=== PATIENT | female | born 1950 | race Caucasian/White ===

== ENCOUNTER 2017-10-12 07:13 | Inpatient (IN) | payer MEDICARE ==
[~2017-10-12] VITALS: Ht 162.6 cm; Wt 90.7 kg
[2017-10-12] MEDS ORDERED: NITROGLYCERIN 2% OINT 1 GM PKT TOP STA (07:46)
[2017-10-12] MEDS ORDERED: ASPIRIN 81 MG CHEW TAB PO STA (07:46)
[2017-10-12] MEDS ORDERED: ASPIRIN 81 MG CHEW TAB PO ONE (08:00)
--- NOTE | 2017-10-12 08:30 | Diagnostic Imaging Report ---
PROCEDURE: A single AP view of the chest. COMPARISON: None. INDICATIONS: CHEST PAIN FINDINGS: Lines/tubes: None. Lungs: The lungs are well inflated and clear. There is no evidence of pneumonia or pulmonary edema. Pleura: There is no pleural effusion or pneumothorax. Heart and mediastinum: The heart and the mediastinum are unremarkable. Bones: No acute bony abnormality. Median sternotomy wires. IMPRESSION: No acute radiographic abnormality. Dictated by: Shadi Bowie M.D. on 10/12/2017 at 8:31 Electronically approved by: Shadi Bowie M.D. on 10/12/2017 at 8:31
[2017-10-12 08:45] LABS: BILIRUBIN,URINE NEGATIVE (NEGATIVE); KETONES,URINE 2+ (NEGATIVE); LEUKOCYTE ESTERASE ,URINE 2+ (NEGATIVE); NITRITE,URINE NEGATIVE (NEGATIVE); URINE UROBILINOGEN 0.2 mg/dL (0.2 - 1)
[2017-10-12 08:46] LABS: CLARITY,URINE SL CLOUDY (CLEAR); COLOR,URINE YELLOW (YELLOW); PROTEIN,URINE DIPSTICK 1+ (NEGATIVE)
[2017-10-12 09:06] LABS: RBC,URINE >50 /HPF (0-5)
[2017-10-12 09:07] LABS: BACTERIA,URINE RARE /HPF; EPITHELIAL CELLS,URINE MODERATE /LPF; TRANSITIONAL EPI CELLS,URINE FEW
[2017-10-12] MEDS ORDERED: KETOROLAC TROMETHAMINE 30 MG/ML VIAL IV STA (09:29)
[2017-10-12] MEDS ORDERED: DIAZEPAM 2 MG TAB PO ONE (09:30)
--- NOTE | 2017-10-12 10:10 | Diagnostic Imaging Report ---
PROCEDURE: CT ABDOMEN AND PELVIS WITHOUT CONTRAST TECHNIQUE: The abdomen and pelvis were scanned utilizing a multidetector helical scanner from the diaphragm to the lesser trochanter. No IV contrast was administered as per physician request. Coronal and sagittal multiplanar reformations were obtained. COMPARISON: None. INDICATIONS: RENAL STONE FINDINGS: ABSENCE OF INTRAVENOUS CONTRAST DECREASES SENSITIVITY FOR DETECTION OF FOCAL LESIONS AND VASCULAR PATHOLOGY. LOWER THORAX: Normal. HEPATOBILIARY: No focal hepatic lesions. No biliary ductal dilatation. SPLEEN: No splenomegaly. PANCREAS: No focal masses or ductal dilatation. ADRENALS: No adrenal nodules. KIDNEYS/URETERS: 6.1 mm calcification is present in the proximal left ureter, series 3 image 68. There is resulting minimal left hydroureter and no left hydronephrosis. Punctate calculi are present in the inferior pole and interpolar region of the left kidney. No right hydronephrosis, stones, or solid mass lesions. PELVIC ORGANS/BLADDER: Normal uterus and ovaries. Normal urinary bladder. PERITONEUM / RETROPERITONEUM: No free air or fluid. LYMPH NODES: No lymphadenopathy. VESSELS: Aortoiliac atherosclerotic calcifications. GI TRACT: No distention or wall thickening. Normal appendix. Moderate amount of retained feces limits intraluminal evaluation of the colon. BONES AND SOFT TISSUES: Degenerative changes of the lumbar spine. IMPRESSION: Calculus in the proximal left ureter with resulting minimal left hydroureter and no hydronephrosis. Nonobstructing left nephrolithiasis. Dictated by: Shadi Bowie M.D. on 10/12/2017 at 10:10 Electronically approved by: Shadi Bowie M.D. on 10/12/2017 at 10:10
[2017-10-12] MEDS ORDERED: DEXTROSE 50% SYRINGE 50 ML IV PRN (11:00)
--- OUTSIDE RECORDS SUMMARY | 2017-10-12 11:26 | XMS REPORT ---
Author Author [facility] Address Unknown Phone Unavailable Care Team Providers Care Dental Technologist Name Role Phone TABATHA JOHN Unavailable Unavailable Problems This patient has no known problems. Allergies, Adverse Reactions, Alerts This patient has no known allergies or adverse reactions. Medications This patient has no known medications. Results Test Description Test Time Test Comments Text Results Atomic Results Result Comments CT ABDOMEN/PELVIS WO [place] [address] Patient Name: CHARO MATHIS MR #: [id number] : 1950 Age/Sex: 66/F Req #: [id number] Adm Physician: Ordered by: TABATHA JOHN MD Report #: [id number] Location: ER Room/Bed: Procedure: [id number] CT/CT ABDOMEN/PELVIS WO Exam Date: 10/12/17 Exam Time: 929 REPORT STATUS: Signed PROCEDURE: CT ABDOMEN AND PELVIS WITHOUT CONTRAST TECHNIQUE: The abdomen and pelvis were scanned utilizing a multidetector helical scanner from the diaphragm to the lesser trochanter. No IV contrast was administered as per physician request. Coronal and sagittal multiplanar reformations were obtained. COMPARISON: None. INDICATIONS: RENAL STONE FINDINGS: ABSENCE OF INTRAVENOUS CONTRAST DECREASES SENSITIVITY FOR DETECTION OF FOCAL LESIONS AND VASCULAR PATHOLOGY. LOWER THORAX: Normal. HEPATOBILIARY: No focal hepatic lesions. No biliary ductal dilatation. SPLEEN: No splenomegaly. PANCREAS: No focal masses or ductal dilatation. ADRENALS: No adrenal nodules. KIDNEYS/URETERS: 6.1 mm calcification is present in the proximal left ureter, series 3 image 68. There is resulting minimal left hydroureter and no left hydronephrosis. Punctate calculi are present in the inferior pole and interpolar region of the left kidney. No right hydronephrosis, stones, or solid mass lesions. PELVIC ORGANS/BLADDER: Normal uterus and ovaries. Normal urinary bladder. PERITONEUM / RETROPERITONEUM: No free air or fluid. LYMPH NODES: No lymphadenopathy. VESSELS: Aortoiliac atherosclerotic calcifications. GI TRACT: No distention or wall thickening. Normal appendix. Moderate amount of retained feces limits intraluminal evaluation of the colon. BONES AND SOFT TISSUES : Degenerative changes of the lumbar spine. IMPRESSION: Calculus in the proximal left ureter with resulting minimal left hydroureter and no hydronephrosis. Nonobstructing left nephrolithiasis. Dictated by: Tanvir Ibrahim M.D. on 10/12/2017 at 10:10 Electronically approved by: Tanvir Ibrahim M.D. on 10/12/2017 at 10:10 Dictated By: TANVIR IBRAHIM MD 1011 Transcribed By: JAZMÍN on 10/12/17 1011 COPY TO: TABATHA JOHN MD CHEST SINGLE (NOT PORTABLE) [place] [address] Patient Name: CHARO MATHIS MR #: [id number] : 1950 Age/Sex: 66/F Req #: [id number] Adm Physician: Ordered by: TABATHA JOHN MD Report #: [id number] Location: ER Room/Bed: Procedure: [id number] DX/CHEST SINGLE (NOT PORTABLE) Exam Date: 10/12/17 Exam Time: 0805 REPORT STATUS: Signed PROCEDURE: A single AP view of the chest. COMPARISON: None. INDICATIONS: CHEST PAIN FINDINGS: Lines/tubes: None. Lungs: The lungs are well inflated and clear. There is no evidence of pneumonia or pulmonary edema. Pleura: There is no pleural effusion or pneumothorax. Heart and mediastinum: The heart and the mediastinum are unremarkable. Bones: No acute bony abnormality. Median sternotomy wires. IMPRESSION: No acute radiographic abnormality. Dictated by: Tanvir Ibrahim M.D. on 2017 at 8:31 Electronically approved by: Tanvir Ibrahim M.D. on 10/12/2017 at 8:31 Dictated By: TANVIR IBRAHIM MD 0 Transcribed By: JAZMÍN on 10/12/17830 COPY TO: TABATHA JOHN MD
[2017-10-12 11:30] LABS: INR 1.04; PROTHROMBIN TIME 12.8 seconds (11.9-14.5)
[2017-10-12 11:31] LABS: PARTIAL THROMBOPLASTIN TIME 38.7 seconds (23.8-35.5)
[2017-10-12] MEDS: SODIUM CHLORIDE 0.9% 1000ML 1,000 ML IV SCH ×3 (11:42→20:45)
[2017-10-12] MEDS: CEFTRIAXONE SOD 1 GM VIAL IV SCH (13:34)
[2017-10-12] MEDS: INSULIN REGULAR, HUMAN 100 UNIT/1 ML 3ML VIAL SQ SCH ×3 (13:35→20:01)
[2017-10-12 13:52] VITALS: BP 146/65
[2017-10-12] MEDS ORDERED: GLIMEPIRIDE2 MG PO (13:53)
[2017-10-12] MEDS ORDERED: ASPIRIN325 MG PO (13:53)
[2017-10-12] MEDS ORDERED: RAMIPRIL5 MG PO (13:53)
[2017-10-12] MEDS ORDERED: METOPROLOL SUCC50 MG PO (13:53)
[2017-10-12 14:46] VITALS: BP 146/65
[2017-10-12] MEDS ORDERED: METOPROLOL TART50 MG PO (14:55)
[2017-10-12 15:27] VITALS: BP 157/67
[2017-10-12] MEDS ORDERED: GLIMEPIRIDE 2 MG TAB PO SCH (17:00)
[2017-10-12] MEDS: METOPROLOL TARTRATE 50 MG TAB PO SCH (17:11)
[2017-10-12] MEDS: HYDROMORPHONE 1MG/1ML INJ IV PRN (18:55)
[2017-10-12] MEDS: ONDANSETRON HCL INJ 2 MG/ML VIAL IV PRN (18:56)
[2017-10-12 20:00] VITALS: BP 119/59
--- NOTE | 2017-10-12 20:58 | Diagnostic Imaging Report ---
EXAM: ABDOMEN-1VIEW (KUB) DATE: 10/12/2017 7:55 PM INDICATION: Pain COMPARISON: None FINDINGS: Body habitus significantly limits evaluation. Sternotomy wires partially visualized. There is moderate stool with no distinct small bowel obstructive change. There is a 7 mm calcification to the left of the L3 vertebral body. IMPRESSION: Exam limited by body habitus. 7 mm calcification to the left of the L3 vertebral body. Ureteral calculus possible. Signed by: Dr. Killian Marshall MD on 10/12/2017 8:55 PM
[2017-10-13] VITALS (8 sets, daily range): BP systolic 128–156; BP diastolic 60–80
--- NOTE | 2017-10-13 06:26 | Diagnostic Imaging Report ---
EXAM: ABDOMEN-1VIEW (KUB), supine and erect INDICATION: Kidney stone left side COMPARISON: CT of the abdomen and pelvis October 12, 2017 FINDINGS: LINES/TUBES: None BOWEL PATTERN: No evidence for obstruction. SOFT TISSUES: Stable position of the left ureteral stone at the L3 level. LUNG BASES: No consolidations. BONES: No acute findings. IMPRESSION: Stable position of the left ureteral stone at the L3 level. Signed by: Dr. Maggie Newton M.D. on 10/13/2017 6:16 AM
[2017-10-13 06:33] LABS: BASOPHILS % 0.3 % (0.0-1.0); EOSINOPHILS # (AUTO) 0.1 (0.0-0.4); EOSINOPHILS % 1.1 % (0.0-6.0); HEMATOCRIT 33.1 % (34.2-44.1); HEMOGLOBIN 10.9 g/dL (12.0-16.0); LYMPHOCYTES # (AUTO) 2.3 (1.0-3.2); LYMPHOCYTES % 22.3 % (18.0-39.1); MEAN CORPUSCULAR HEMOGLOBIN 29.4 pg (28-32); MEAN CORPUSCULAR HGB CONC 32.9 g/dL (31-35); MEAN CORPUSCULAR VOLUME 89.2 fL (81-99); MONOCYTES # (AUTO) 1.1 (0.2-0.8); MONOCYTES % 10.4 % (4.4-11.3); NEUTROPHILS # (AUTO) 6.9 (2.1-6.9); NEUTROPHILS % 65.5 % (38.7-80.0); PLATELET COUNT 234 x10e3/uL (140-360); RED BLOOD COUNT 3.71 x10e6/uL (3.6-5.1)
[2017-10-13] MEDS ORDERED: IOPAMIDOL 610MG/1ML 300 MG/ML VIAL IV ONE (06:42)
[2017-10-13] MEDS ORDERED: BELLADONNA/OPIUM 60 MG SUPP PR ONE (06:42)
[2017-10-13 06:52] LABS: ANION GAP 11.3 mmol/L (8-16); CALCIUM 8.6 mg/dL (8.4-10.2); CREATININE, SERUM 1.48 mg/dL (0.57-1.11); POTASSIUM 4.3 mmol/L (3.5-5.1)
--- NOTE | 2017-10-13 07:28 | Consultation ---
DATE OF CONSULTATION: October 13, 2017 UROLOGY CONSULTATION REASON FOR CONSULTATION: Renal colic. HISTORY OF PRESENT ILLNESS: Annie Moran is a 66-year-old woman with no previous urolithiasis. The patient had left-sided flank pain and reported to the emergency room. She denies hematuria, dysuria, urinary tract infection, urolithiasis. Denies any urological surgery. The patient reports not having problems with urinary tract infection or previous urolithiasis. She denies stress-type urinary incontinence. Reports a rare urge-type urinary incontinence when she does not reach the restroom in time. She has never seen a urologist PAST MEDICAL AND SURGICAL HISTORY 1. Coronary artery disease, status post coronary artery bypass grafting times 4 performed in [place], [place]. 2. 1, para 1 by spontaneous vaginal delivery. 3. Status post appendectomy at 6 years old. 4. Hypertension. 5. Hypercholesterolemia. 6. Diabetes mellitus. CURRENT MEDICATIONS: Reviewed per the MAR. ALLERGIES: PENICILLIN. Despite the penicillin, she did not seem to have any reaction to the Rocephin she has received. SOCIAL HISTORY: The patient denies smoking, ethanol drug use. She retired after working 30 years for [employer]. She is . She and her are . FAMILY HISTORY: Noncontributory to active urological problems. REVIEW OF SYSTEMS: As discussed above history of present illness and past medical history. Otherwise, negative for all other systems. PHYSICAL EXAMINATION GENERAL: Healthy-appearing 66-year-old woman lying in bed, in no apparent distress. VITALS: She is currently afebrile. Vital signs are currently stable. ABDOMEN: Soft, nondistended. It is obese. It is slightly tender in the left flank with mild left-sided costovertebral angle tenderness. Kidneys not palpable. No hepatosplenomegaly. No obvious evidence of hernias. For the remaining physical examination systems, please refer to the admission history and physical in the chart. LABORATORY STUDIES: Chemistries from this morning are pending. The patient's white blood cell count is 10,500, hemoglobin 10.9, platelets are 234,000. Patient's PT and INR are normal. Urinalysis significant for greater than 50 RBCs, 6-10 WBCs, moderate epithelial cells. I asked the emergency room to perform a catheterized urine specimen for culture and sensitivity. This was, apparently, not done prior to patient obtaining antibiotics. Due to this, I have remained this requested due to fact this is a not clean-cut urinary specimen with moderate epithelial cells. KUB revealed stable position, non-movement of the stone over 2 days near the L3 position. The stone measured at 6 mm calcification, punctate calculi are also present in inferior pole, inner pole region of the left kidney. There is no right-sided hydronephrosis, stones or solid masses. There is left-sided hydroureteronephrosis. ASSESSMENT 1. Left renal colic. 2. Mild urge-type urinary incontinence. 3. Obesity. 4. Anemia. 5. Microscopic hematuria. 6. Punctate left nephrolithiasis. 7. Obstructing 6-mm left urolithiasis. 8. Left hydroureteronephrosis due to stone. PLAN 1. Due to the fact the patient's probability of passing the stone is low and the fact that she has not had any movement of the stone during this hospitalization with hydration, I posted the patient for a left ureteral ESWL with cystoscopy and stent placement. The patient understands the risks of bleeding, infection, injury to adjacent structures, need for additional procedures, and the fact she will have a temporary indwelling ureteral stent that requires followup and removal. She understood these risks and elected to proceed. 2. Ongoing urological followup will, of course, be encouraged in order to not just remove the stent and render the patient stent free and stone free, but also to proceed with a stone prevention protocol. Thank you very much for involving us in the care of your patient. Will be happy to follow her along with you, as well as an outpatient. Job#: [id number] CQ cc:ALETHEA QUINN MD
[2017-10-13] MEDS: INSULIN REGULAR, HUMAN 100 UNIT/1 ML 3ML VIAL SQ SCH ×4 (07:30→21:23)
[2017-10-13] MEDS: GLIMEPIRIDE 2 MG TAB PO SCH ×2 (07:59→17:24)
[2017-10-13] MEDS ORDERED: ASPIRIN 325 MG TAB PO SCH (09:00)
[2017-10-13] MEDS: SODIUM CHLORIDE 0.9% 1000ML 1,000 ML IV SCH ×3 (09:32→21:23)
[2017-10-13] MEDS: RAMIPRIL 5 MG CAP PO SCH (09:40)
[2017-10-13] MEDS: OXYBUTYNIN CHLORIDE 5 MG TAB PO SCH ×2 (09:40→17:24)
[2017-10-13] MEDS: PHENAZOPYRIDINE HCL 100 MG TAB PO SCH ×3 (09:40→17:24)
[2017-10-13] MEDS: CEFTRIAXONE SOD 1 GM VIAL IV SCH (09:40)
[2017-10-13] MEDS: METOPROLOL TARTRATE 50 MG TAB PO SCH ×2 (09:40→17:24)
[2017-10-13] MEDS ORDERED: PROPOFOL IV EMULSION 10 MG/ML 20 ML VIAL ONE (17:21)
[2017-10-13] MEDS ORDERED: SEVOFLURANE INHAL SOLN 250 ML PEN BTL ONE (17:21)
[2017-10-13] MEDS ORDERED: ONDANSETRON HCL INJ 2 MG/ML VIAL ONE (17:21)
[2017-10-13] MEDS ORDERED: DEXAMETHASONE SOD PHOS INJ 4 MG/ML VIAL ONE (17:21)
[2017-10-13] MEDS ORDERED: LIDOCAINE HCL 2% LOCAL INJ 5 ML SDV VIAL INJ ONE (17:21)
[2017-10-13] MEDS ORDERED: FENTANYL CITRATE/PF 100MCG/2 ML INJ ONE (17:30)
[2017-10-13] MEDS ORDERED: MIDAZOLAM HCL 2 MG/2 ML VIAL ONE (17:30)
[2017-10-13] MEDS: HYDROMORPHONE 1MG/1ML INJ IV PRN (21:40)
[2017-10-14] VITALS: BP 117/56
[2017-10-14 05:29] VITALS: BP 117/56
[2017-10-14 06:28] LABS: BASOPHILS % 0.2 % (0.0-1.0); EOSINOPHILS # (AUTO) 0.1 (0.0-0.4); EOSINOPHILS % 0.6 % (0.0-6.0); HEMATOCRIT 31.3 % (34.2-44.1); HEMOGLOBIN 10.2 g/dL (12.0-16.0); LYMPHOCYTES # (AUTO) 2.3 (1.0-3.2); LYMPHOCYTES % 18.9 % (18.0-39.1); MEAN CORPUSCULAR HEMOGLOBIN 29.7 pg (28-32); MEAN CORPUSCULAR HGB CONC 32.6 g/dL (31-35); MONOCYTES # (AUTO) 1.1 (0.2-0.8); MONOCYTES % 8.8 % (4.4-11.3); NEUTROPHILS # (AUTO) 8.6 (2.1-6.9); NEUTROPHILS % 71.1 % (38.7-80.0); PLATELET COUNT 228 x10e3/uL (140-360); RED BLOOD COUNT 3.44 x10e6/uL (3.6-5.1); RED CELL DISTRIBUTION WIDTH 14.2 % (11.7-14.4)
[2017-10-14 06:52] LABS: ANION GAP 10.1 mmol/L (8-16); BLOOD UREA NITROGEN 22 mg/dL (7-26); BUN/CREATININE RATIO 28 (6-25); CALCIUM 8.6 mg/dL (8.4-10.2); CARBON DIOXIDE 23 mmol/L (22-29); CHLORIDE 111 mmol/L (98-107); CREATININE, SERUM 0.78 mg/dL (0.57-1.11); EST GLOMERULAR FILTRATION RATE > 60 ML/MIN (60-); GLUCOSE 61 mg/dL (74-118); POTASSIUM 4.1 mmol/L (3.5-5.1); SODIUM 140 mmol/L (136-145)
[2017-10-14 07:00] VITALS: BP 140/88
--- NOTE | 2017-10-14 07:27 | Diagnostic Imaging Report ---
PROCEDURE:X-RAY ABDOMEN - KUB COMPARISON:KUB 10/13/2017. INDICATIONS:RENAL STONE FINDINGS: Interval placement of a left internal ureteral stent. The proximal locking loop projects over the expected region of the renal pelvis. The distal locking loop projects over the expected region of the urinary bladder, to the left of midline. Previously described 7 mm calculus along the expected course of the right ureter now projects over the lower pole of the left kidney. Bowel gas pattern is nonobstructive. Regional skeletal structures are intact. Partially visualized median sternotomy wires. CONCLUSION: Interval placement of a left internal ureteral stent with likely displacement of the previously described 7 mm left ureteral calculus into the left lower pole collecting system. Dictated by: Wilmar Parisi M.D. on 10/14/2017 at 7:28 Electronically approved by: Wilmar Parisi M.D. on 10/14/2017 at 7:28
[2017-10-14] MEDS: INSULIN REGULAR, HUMAN 100 UNIT/1 ML 3ML VIAL SQ SCH ×2 (07:30→13:02)
[2017-10-14 07:50] VITALS: BP 140/88
[2017-10-14] MEDS: CEFTRIAXONE SOD 1 GM VIAL IV SCH (10:34)
[2017-10-14] MEDS: OXYBUTYNIN CHLORIDE 5 MG TAB PO SCH (10:34)
[2017-10-14] MEDS: GLIMEPIRIDE 2 MG TAB PO SCH (10:34)
[2017-10-14] MEDS: RAMIPRIL 5 MG CAP PO SCH (10:34)
[2017-10-14] MEDS: METOPROLOL TARTRATE 50 MG TAB PO SCH (10:35)
[2017-10-14] MEDS: PHENAZOPYRIDINE HCL 100 MG TAB PO SCH (10:35)
[2017-10-14 11:19] VITALS: BP 142/63
[2017-10-14] MEDS: ONDANSETRON HCL INJ 2 MG/ML VIAL IV PRN (11:35)
[2017-10-14] MEDS: HYDROMORPHONE 1MG/1ML INJ IV PRN (11:35)
== END 2017-10-14 13:26 | disposition home or self-care (01) | DRG 661 ==
LOC: ER 07:13 → ERHOLD 11:23 → IMCU 12:47 → OBSVTOIN 15:55
PROVIDERS: ADMIT Internal Medicine; ATTEND Internal Medicine
PROC: 0T778DZ Dilation of Left Ureter with Intraluminal Device, Via Natural or Artificial Opening Endoscopic (ICD-10-PCS; 2017-10-13)
PROC: 0TC18ZZ Extirpation of Matter from Left Kidney, Via Natural or Artificial Opening Endoscopic (ICD-10-PCS; principal; 2017-10-13 07:03)
DX: N13.2 Hydronephrosis with renal and ureteral calculous obstruction (principal); N17.9 Acute kidney failure, unspecified; E66.9 Obesity, unspecified; Z68.34 Body mass index [BMI] 34.0-34.9, adult; E11.9 Type 2 diabetes mellitus without complications; I10 Essential (primary) hypertension; E78.5 Hyperlipidemia, unspecified; D64.9 Anemia, unspecified; Z79.4 Long term (current) use of insulin; N81.10 Cystocele, unspecified; N39.41 Urge incontinence; Z88.0 Allergy status to penicillin; Z79.82 Long term (current) use of aspirin; I25.10 Atherosclerotic heart disease of native coronary artery without angina pectoris; Z95.1 Presence of aortocoronary bypass graft; N39.46 Mixed incontinence
CPT/HCPCS: 36415; 50590; 71045; 74018; 74176; 80048; 81001; 82948; 83970; 84550; 85025; 85610; 85730; 87086; 88305; 93005; 99284; C2617; J0696; J1100; J1170; J1885; J2001; J2250; J2405; J7030

== ENCOUNTER → 2017-11-20 | Day surgery (SDC) | payer MEDICARE ==
[2017-11-19 12:44] LABS: BASOPHILS % 0.4 % (0.0-1.0); EOSINOPHILS # (AUTO) 0.3 (0.0-0.4); EOSINOPHILS % 3.5 % (0.0-6.0); HEMATOCRIT 37.7 % (34.2-44.1); HEMOGLOBIN 12.5 g/dL (12.0-16.0); LYMPHOCYTES # (AUTO) 2.3 (1.0-3.2); LYMPHOCYTES % 24.8 % (18.0-39.1); MEAN CORPUSCULAR HEMOGLOBIN 29.3 pg (28-32); MEAN CORPUSCULAR HGB CONC 33.2 g/dL (31-35); MEAN CORPUSCULAR VOLUME 88.5 fL (81-99); MONOCYTES # (AUTO) 0.8 (0.2-0.8); NEUTROPHILS # (AUTO) 5.7 (2.1-6.9); NEUTROPHILS % 61.7 % (38.7-80.0); PLATELET COUNT 265 x10e3/uL (140-360); RED BLOOD COUNT 4.26 x10e6/uL (3.6-5.1); RED CELL DISTRIBUTION WIDTH 13.7 % (11.7-14.4)
[2017-11-19 13:03] LABS: ANION GAP 13.9 mmol/L (8-16); BLOOD UREA NITROGEN 21 mg/dL (7-26); BUN/CREATININE RATIO 25 (6-25); CALCIUM 10.1 mg/dL (8.4-10.2); CARBON DIOXIDE 26 mmol/L (22-29); CHLORIDE 106 mmol/L (98-107); CREATININE, SERUM 0.85 mg/dL (0.57-1.11); EST GLOMERULAR FILTRATION RATE > 60 ML/MIN (60-); GLUCOSE 212 mg/dL (74-118); POTASSIUM 5.9 mmol/L (3.5-5.1); SODIUM 140 mmol/L (136-145)
[~2017-11-20] MED LIST: ASPIRIN325 MG PO; CEFTRIAXONE SOD 1 GM VIAL ONE; EPHEDRINE SULFATE INJ 50 MG/10 ML SYR ONE; FENTANYL CITRATE/PF 100MCG/2 ML INJ ONE; GLIMEPIRIDE2 MG PO; INSULIN REGULAR, HUMAN 100 UNIT/1 ML 3ML VIAL ONE; LIDOCAINE HCL 2% LOCAL INJ 5 ML SDV VIAL INJ ONE; METOPROLOL SUCC50 MG PO; METOPROLOL TART50 MG PO; MIDAZOLAM HCL 2 MG/2 ML VIAL ONE; ONDANSETRON HCL INJ 2 MG/ML VIAL ONE; OXYBUTYNIN CHLOR5 MG PO; PROPOFOL IV EMULSION 10 MG/ML 20 ML VIAL ONE; RAMIPRIL5 MG PO; SEVOFLURANE INHAL SOLN 250 ML PEN BTL ONE; TYLENOL WITH C1 EACH PO; ZOLPIDEM TARTRAT5 MG PO
--- OUTSIDE RECORDS SUMMARY | 2017-11-20 05:25 | XMS REPORT | Continuity of Care Document ---
Author Author [facility] Organization [facility] Address [address] [place] [address] Phone Unavailable Care Team Providers Care Foot And Ankle Surgeon Name Role Phone ALETHEA QUINN MD PCP Insurance Providers Guarantor Annie Mathis Address [address] [place] [address] Email [email or web address] Payer [facility] Policy Number [id number] Subscriber's Name Annie Mathis Relationship 18 Self / Same As Patient Effective Date 17 Payer Medicare A & B Policy Number [id number] Subscriber's Name Mathis,Annei A Relationship 18 Self / Same As Patient Advance Directives Directive Response Recorded Date/Time Does the patient have an advance directive? No 10/12/17 2:42pm If yes, is advance directive on file with [facility]? No 10/12/17 2:42pm If not on file with [facility] will patient provide a copy? No 10/12/17 2:42pm Do you have a Directive to Physician? No 10/12/17 8:08am Do you have a Medical Power of Acid Purifier? No 10/12/17 8:08am Do you have an out of hospital Do Not Resuscitate Order? No 10/12/17 8:08am Do you have any special needs we should be aware of? No 10/12/17 8:08am Do you have a support person here with you today? Yes 10/12/17 8:08am Did patient receive Notice of Privacy Practices? Yes 10/12/17 8:08am Did patient receive patient rights and responsibilities? Yes 10/12/17 8:08am Problems No problem information available. Medications Current Home Medications Medication Dose Units Route Directions Days Qty Instructions Start Date Aspirin 325 Mg Tablet 325 Mg Oral Daily 30 Tab Glimepiride 2 Mg Tablet 2.5 Mg Oral Twice A Day Metoprolol Tartrate 50 Mg Tablet 50 Mg Oral Twice A Day Ramipril 5 Mg Capsule 5 Mg Oral Daily 30 Tab Past Home Medications Medication Directions Ordered Status Metoprolol Succinate 50 Mg Tab.er.24h, 50 Mg Oral Twice A Day Discontinued Social History Social History Problem Response Recorded Date/Time Onset Date Status Hx Psychiatric Problems No 10/12/2017 2:42pm Not Applicable Not Applicable Smoking Status Start Date Stop Date Never Smoker Hospital Discharge Instructions No hospital discharge instruction information available. Plan of Care Discharge Date 10/14/17 1:26pm Disposition HOME, SELF-CARE Instructions/Education Provided Kidney Stones Prescriptions See Medication Section Additional Instructions/Education follow up for Lithotripsy DIABETIC DIET AND FOLLOW UP WITH DR CUEVA IN 2 WEEKS Functional Status Query Response Date Recorded Assistive Devices None October 12, 2017 2:46pm Ambulation Ability Independent October 12, 2017 2:46pm Toileting Ability Independent October 12, 2017 2:46pm Allergies, Adverse Reactions, Alerts Allergen Type Severity Reaction Status Last Updated PENICLLIN Allergy Unknown Active 10/12/17 Immunizations No immunization information available. Vital Signs Acute Vital Signs Vital Response Date/Time Temperature (Fahrenheit) 97.9 degrees F (97.6 - 99.5) 10/14/2017 11:19am Pulse Pulse Rate (adult) 92 bpm (60 - 90) 10/14/2017 11:19am Respiratory Rate 20 bpm (12 - 24) 10/14/2017 11:19am Blood Pressure 142/63 mm Hg 10/14/2017 11:19am Height 5 ft 4 in 10/12/2017 7:26am Weight 200.03 lb 10/13/2017 9:07am Body Mass Index 34.3 kg/m^2 10/13/2017 9:07am Results Laboratory Results Test Name Result Units Flags Reference Collection Date/Time Result Date/ Time Comments White Blood Count 12.07 x10e3/uL H 4.8-10.8 10/14/2017 6:2017 6:38am Red Blood Count 3.44 x10e6/uL L 3.6-5.1 10/14/2017 6:10/14/2017 6: 38am Hemoglobin 10.2 g/dL L 12.0-16.0 10/14/2017 6:10/14/2017 6:38am Hematocrit 31.3 % L 34.2-44.1 10/14/2017 6:10/14/2017 6:38am Mean Corpuscular Volume 91.0 fL 81-99 10/14/2017 6:10/14/2017 6: 38am Mean Corpuscular Hemoglobin 29.7 pg 28-32 10/14/2017 6:10/14/2017 6:38am Mean Corpuscular Hemoglobin Concent 32.6 g/dL 31-35 10/14/2017 6:10/14/2017 6:38am Red Cell Distribution Width 14.2 % 11.7-14.4 10/14/2017 6:2017 6:38am Platelet Count 228 x10e3/uL 140-360 10/14/2017 6:10/14/2017 6: 38am Neutrophils (%) (Auto) 71.1 % 38.7-80.0 10/14/2017 6:10/14/2017 6: 38am Lymphocytes (%) (Auto) 18.9 % 18.0-39.1 10/14/2017 6:10/14/2017 6: 38am Monocytes (%) (Auto) 8.8 % 4.4-11.3 10/14/2017 6:10/14/2017 6: 38am Eosinophils (%) (Auto) 0.6 % 0.0-6.0 10/14/2017 6:10am 10/14/2017 6: 38am Basophils (%) (Auto) 0.2 % 0.0-1.0 10/14/2017 6:10am 10/14/2017 6:38am IM GRANULOCYTES % 0.4 % 0.0-1.0 10/14/2017 6:10am 10/14/2017 6:38am Neutrophils # (Auto) 8.6 H 2.1-6.9 10/14/2017 6:10am 10/14/2017 6: 38am Lymphocytes # (Auto) 2.3 1.0-3.2 10/14/2017 6:10am 10/14/2017 6:38am Monocytes # (Auto) 1.1 H 0.2-0.8 10/14/2017 6:10am 10/14/2017 6:38am Eosinophils # (Auto) 0.1 0.0-0.4 10/14/2017 6:10am 10/14/2017 6:38am Basophils # (Auto) 0.0 0.0-0.1 10/14/2017 6:10am 10/14/2017 6:38am Absolute Immature Granulocyte (auto 0.05 x10e3/uL 0-0.1 10/14/2017 6: 10am 10/14/2017 6:38am Prothrombin Time 12.8 seconds 11.9-14.5 10/12/2017 10:55am 10/12/2017 11:31am Prothromb Time International Ratio 1.04 10/12/2017 10:55am 2017 11:31am Oral Anticoagulant Therapy INR Values: 1. Low Intensity Therapy 1.5 - 2.0 2. Moderate Intensity Therapy 2.0 - 3.0 3. High Intensity Therapy(1) 2.5 - 3.5 4. High Intensity Therapy(2) 3.0 - 4.0 5. Panic Value INR > 5.0 Activated Partial Thromboplast Time 38.7 seconds H 23.8-35.5 10/12/2017 10:55am 10/12/2017 11:32am Urine Color YELLOW YELLOW 10/12/2017 9:30am 10/12/2017 8:46am Urine Clarity SL CLOUDY CLEAR 10/12/2017 9:30am 10/12/2017 8:46am Urine Specific [place]win 1.025 1.010-1.025 10/12/2017 9:30am 2017 8:46am Urine pH 5 5 - 7 10/12/2017 9:30am 10/12/2017 8:46am Urine Leukocyte Esterase 2+ H NEGATIVE 10/12/2017 9:30am 10/12/2017 8: 46am Urine Nitrite NEGATIVE NEGATIVE 10/12/2017 9:30am 10/12/2017 8:46am Urine Protein 1+ H NEGATIVE 10/12/2017 9:30am 10/12/2017 8:46am Urine Glucose (UA) 2+ H NEGATIVE 10/12/2017 9:30am 10/12/2017 8:46am Urine Ketones 2+ H NEGATIVE 10/12/2017 9:30am 10/12/2017 8:46am Urine Urobilinogen 0.2 mg/dL 0.2 - 1 10/12/2017 9:30am 10/12/2017 8: 46am Urine Bilirubin NEGATIVE NEGATIVE 10/12/2017 9:30am 10/12/2017 8: 46am Urine Blood 4+ H NEGATIVE 10/12/2017 9:30am 10/12/2017 8:46am Urine WBC 6-10 /HPF H 0-5 10/12/2017 9:30am 10/12/2017 9:07am Urine RBC >50 /HPF H 0-5 10/12/2017 9:30am 10/12/2017 9:07am Urine Bacteria RARE /HPF NONE 10/12/2017 9:30am 10/12/2017 9:07am Urine Epithelial Cells MODERATE /LPF NONE 10/12/2017 9:30am 10/12/2017 9:07am Urine Transitional Epithelial Cells FEW H NONE 10/12/2017 9:30am 10/12 9:07am Sodium Level 140 mmol/L 136-145 10/14/2017 6:10am 10/14/2017 6:54am Potassium Level 4.1 mmol/L 3.5-5.1 10/14/2017 6:10am 10/14/2017 6:54am Chloride Level 111 mmol/L H 98-107 10/14/2017 6:10am 10/14/2017 6:54am Carbon Dioxide Level 23 mmol/L 22-29 10/14/2017 6:10am 10/14/2017 6: 54am Anion Gap 10.1 mmol/L 8-16 10/14/2017 6:10am 10/14/2017 6:54am Blood Urea Nitrogen 22 mg/dL 7-10/14/2017 6:10am 10/14/2017 6:54am Creatinine 0.78 mg/dL 0.57-1.11 10/14/2017 6:10am 10/14/2017 6:54am BUN/Creatinine Ratio 28 H 6-10/14/2017 6:10am 10/14/2017 6:54am Estimat Glomerular Filtration Rate > 60 ML/MIN 60- 10/14/2017 6:10am 6:54am Ranges were taken from the National Kidney Disease Education Program and the National Kidney Foundation literature. Reference ranges: 60 or greater: Normal 16-59 (for 3 consecutive months): Chronic kidney disease 15 or less: Kidney failure Glucose Level 61 mg/dL L 74-118 10/14/2017 6:10am 10/14/2017 6:54am Calcium Level 8.6 mg/dL 8.4-10.2 10/14/2017 6:10am 10/14/2017 6:54am Bedside Glucose 211 mg/dL H 70-120 10/14/2017 10:47am 10/14/2017 11: 11am Meter ID: [id number] Uric Acid 6.7 mg/dL 2.6-8.0 10/13/2017 6:00am 10/13/2017 7:45am Parathyroid Hormone 12 pg/mL L 15-65 10/13/2017 6:00am 10/14/2017 8: 36am Calcium (Send out) 9.0 mg/dL 8.7-10.3 10/13/2017 6:00am 10/14/2017 8: 36am Parathyroid Hormone Interpretation Comment . 10/13/2017 6:00am 2017 8:36am Interpretation Intact PTH Calcium (pg/mL) (mg/dL) Normal 15 - 65 8.6 - 10.2 Primary Hyperparathyroidism >65 >10.2 Secondary Hyperparathyroidism >65 <10.2 Non-Parathyroid Hypercalcemia <65 >10.2 Hypoparathyroidism <15 < 8.6 Non-Parathyroid Hypocalcemia 15 - 65 < 8.6 Performed at: - [facility] [place] [id number] Transition Manager: Remi Dennison MD, Phone: [phone] Performed at: [address] [id number] Transition Manager: Akshat Disla MD, Phone: [phone] Procedures Procedure Status Date Provider(s) Extracorporeal shock wave lithotripsy (ESWL) Completed 10/13/17 UCHE CUEVA MD X-ray of chest, single view Active 10/12/[address] of abdomen and pelvis without contrast Active 10/12/17 TABATHA JOHN MD Encounters Encounter Location Arrival/Admit Date Discharge/Depart Date Attending Provider Discharged Inpatient [facility] 10/12/17 3:55pm 10/14/17 1:26pm ALETHEA QUINN MD
--- NOTE | 2017-11-20 07:09 | Diagnostic Imaging Report ---
EXAM: ABDOMEN-1VIEW (KUB) DATE: 11/20/2017 5:17 AM Time stamp on exam: 5:31 AM INDICATION: Presurgical assessment COMPARISON: 10/14/2017 FINDINGS: LINES/TUBES: Left-sided double-J ureteral stent is again noted. BOWEL PATTERN: No evidence for obstruction. SOFT TISSUES: The previously visualized 9 mm calcification overlying the inferior pole of the left kidney has now migrated and overlies the proximal left ureter abutting the stent LUNG BASES: Lung bases are clear BONES: Degenerative changes of the lower lumbar spine. IMPRESSION: 9 mm calcification consistent with ureteral stone abutting the proximal stent Signed by: Dr. Robert Li M.D. on 11/20/2017 7:06 AM
--- NOTE | 2017-12-28 01:44 | Operative Report ---
DATE OF PROCEDURE: November 20, 2017 PREOPERATIVE DIAGNOSIS: Left ureterolithiasis. POSTOPERATIVE DIAGNOSIS: Left ureterolithiasis. OPERATION PERFORMED: 1. Staged left-sided extracorporeal shock wave lithotripsy. 2. Supervision of fluoroscopy. No radiologist present. ANESTHESIA: General. COMPLICATIONS: None. CLINICAL SUMMARY: Annie Moran is a 66-year-old woman with a ureteral stent placed for obstructing ureterolithiasis. She is brought for lithotripsy. She is aware of the risks of bleeding, infection, injury to adjacent structures, need for additional procedures and elected to proceed. OPERATIVE PROCEDURE IN DETAIL: Informed consent was verified. Annie Moran was properly identified, taken to the operating room, placed on the lithotripsy table in supine position. Anesthesia was uneventfully begun. The patient was then carefully and gently repositioned in dorsal lithotomy position with all pressure points well padded. The patient's proximal left ureteral stone was localized with biplanar fluoroscopy. Total of 3000 shocks were delivered with fragmentation noted. The patient was then uneventfully reversed from anesthesia and taken to recovery room in stable condition. There no complications during the procedure. She tolerated the procedure well. Explicit postoperative instructions were given. Will plan on returning the patient in the operating room to remove her stent and perform left ureteroscopy and indicated procedures. Job#: [id number] GARO
== END | disposition home or self-care (01) ==
LOC: OR 05:23
PROVIDERS: ATTEND Urology
DX: N20.1 Calculus of ureter (principal); Z96.0 Presence of urogenital implants; I25.810 Atherosclerosis of coronary artery bypass graft(s) without angina pectoris; I10 Essential (primary) hypertension; I25.2 Old myocardial infarction; E78.6 Lipoprotein deficiency; E11.9 Type 2 diabetes mellitus without complications; Z88.0 Allergy status to penicillin; Z01.812 Encounter for preprocedural laboratory examination; Z79.84 Long term (current) use of oral hypoglycemic drugs; Z79.82 Long term (current) use of aspirin; Z95.1 Presence of aortocoronary bypass graft
CPT/HCPCS: 36415 ×2; 50590; 74018; 80048; 82948; 84132; 85025; 88300; J0696; J2001; J2250; J2405

== ENCOUNTER → 2018-01-12 | Day surgery (SDC) | payer MEDICARE ==
[2018-01-08 15:17] LABS: BASOPHILS % 0.4 % (0.0-1.0); EOSINOPHILS # (AUTO) 0.5 (0.0-0.4); EOSINOPHILS % 4.7 % (0.0-6.0); HEMATOCRIT 38.8 % (34.2-44.1); HEMOGLOBIN 12.6 g/dL (12.0-16.0); LYMPHOCYTES # (AUTO) 2.7 (1.0-3.2); LYMPHOCYTES % 27.7 % (18.0-39.1); MEAN CORPUSCULAR HEMOGLOBIN 29.1 pg (28-32); MEAN CORPUSCULAR HGB CONC 32.5 g/dL (31-35); MEAN CORPUSCULAR VOLUME 89.6 fL (81-99); MONOCYTES % 9.9 % (4.4-11.3); NEUTROPHILS # (AUTO) 5.6 (2.1-6.9); NEUTROPHILS % 56.9 % (38.7-80.0); PLATELET COUNT 296 x10e3/uL (140-360); RED BLOOD COUNT 4.33 x10e6/uL (3.6-5.1); RED CELL DISTRIBUTION WIDTH 13.3 % (11.7-14.4)
--- NOTE | 2018-01-08 15:35 | Diagnostic Imaging Report ---
PROCEDURE: Frontal and lateral views of the chest. COMPARISON: Patients [facility], DX, CHEST SINGLE (NOT PORTABLE), 10/12/2017, 8:09. INDICATIONS: PREOPERATIVE CHEST XRAY FOR STENT REMOVAL/KIDNEY STONE SURGERY FINDINGS: Lines/tubes: None. Lungs: The lungs are well inflated and clear. There is no evidence of pneumonia or pulmonary edema. Pleura: There is no pleural effusion or pneumothorax. Heart and mediastinum: Median sternotomy wires and mediastinal clips. Calcification of the aortic arch. Bones: No acute bony abnormality. IMPRESSION: 1. No acute cardiopulmonary disease. Jennifer Glasgow M.D. Dictated by: Jennifer Glasgow M.D. on 01/08/2018 at 15:38 Electronically approved by: Jennifer Glasgow M.D. on 01/08/2018 at 15:38
[2018-01-08 15:37] LABS: ANION GAP 12.9 mmol/L (8-16); BLOOD UREA NITROGEN 24 mg/dL (7-26); BUN/CREATININE RATIO 26 (6-25); CARBON DIOXIDE 25 mmol/L (22-29); CHLORIDE 103 mmol/L (98-107); CREATININE, SERUM 0.91 mg/dL (0.57-1.11); EST GLOMERULAR FILTRATION RATE > 60 ML/MIN (60-); GLUCOSE 204 mg/dL (74-118); POTASSIUM 4.9 mmol/L (3.5-5.1); SODIUM 136 mmol/L (136-145)
[~2018-01-12] MED LIST changes: +BELLADONNA/OPIUM 30 MG SUPP RC ONE; -CEFTRIAXONE SOD 1 GM VIAL ONE; +DEXAMETHASONE SOD PHOS INJ 4 MG/ML VIAL ONE; -EPHEDRINE SULFATE INJ 50 MG/10 ML SYR ONE; +IOPAMIDOL 610MG/1ML 300 MG/ML VIAL IV ONE; +LEVOFLOXACIN 500MG/D5W 100ML 100 ML IV ONE; +METOCLOPRAMIDE HCL 10 MG/2ML VIAL ONE; +ROCURONIUM BROMIDE 10 MG/ML 5ML VIAL ONE; +XANAX0.5 MG; +[UNRECOGNIZED DRUG - CODE]
--- NOTE | 2018-01-12 06:43 | Diagnostic Imaging Report ---
ABDOMEN-1VIEW (KUB) Clinical history: Preoperative left kidney stones Technique: AP view abdomen Comparison: 11/20/2017 Findings: Left double-J ureteral stent projects in expected position. Several stones are again seen along the proximal stent measuring 5 and 7 mm. 3 to 4 mm calcification overlies the expected left lower pole. Impression: Several stones are seen along the proximal left double-J ureteral stent, as above. Signed by: Dr Jeannine Dorsey MD on 01/12/2018 6:40 AM
--- NOTE | 2018-03-05 18:50 | Operative Report ---
DATE OF PROCEDURE: January 12, 2018 PREOPERATIVE DIAGNOSES 1. Urolithiasis. 2. Indwelling ureteral stent. POSTOPERATIVE DIAGNOSES 1. Left ureterolithiasis. 2. Left nephrolithiasis. 3. Indwelling ureteral stent. 4. Grade 3 cystocele. 5. Grade 2 rectocele. 6. Atrophic (senile) vaginitis. PROCEDURES PERFORMED: Note, these are all staged procedures as part of a multistage, multistep process of managing the patient's urolithiasis. 1. Cystourethroscopy with complicated removal of left indwelling ureteral stent (separate procedure performed with separate scope for the diagnosis of stent). 2. Left semirigid ureteroscopy with Holmium laser lithotripsy and stone extraction (separately performed for the multiple residual left-sided ureteral stones). 3. Left ureteral pyeloscopy with stone manipulation extraction (separately performed for the left nephrolithiasis done with a separate, flexible scope). 4. Urological services for supervision and interpretation of ureteroscopy. 5. Interpretation of retrograde ureteropyelography. 6. Pelvic examination under anesthesias. ANESTHESIA: General. COMPLICATIONS: None. CLINICAL SUMMARY: Annie Moran is a 67-year-old woman who underwent left ureteral stent placement followed by 2 ESWL procedures. Patient is brought to the operating room to hopefully render her stent free and stone free. She is aware the risks of bleeding, infection, injury to adjacent structures, need for additional procedures and elected to proceed. OPERATIVE PROCEDURE IN DETAIL: Informed consent was verified. Annie Moran was properly identified and taken to the operating room and placed on the cystoscopy table in the supine position. Anesthesia was uneventfully begun. The patient was then carefully and gently repositioned in the dorsal lithotomy position with all pressure points well padded. Her genitalia were prepared and draped in the usual sterile fashion. And 22.5-Ira[place] cystoscope sheath with obturator in place was atraumatically inserted in the patient's urethra and bladder was drained. Panendoscopy of the urinary bladder revealed no suspicious mucosal lesions. No tumors. No stones and no diverticula. There was a stent emerging from left ureteral orifice. A guidewire was then inserted alongside the stent and guided to the level of the patient's kidney. The stent was then grasped completely, removed and discarded. Semirigid ureteroscope was then inserted into the left ureter. It was guided atraumatically to stones that we encountered. Multiple stones were encountered. Holmium laser lithotripsy was performed in order to pulverize multiple stones into smaller fragments. We then utilized a basket to atraumatically extract all of the large stone fragments. Flexible ureteroscope was then placed over the guidewire and guided to the level of the patient's kidney. Careful panendoscopy revealed kidney stones. These kidney stones were very fine sand that all should be passable. No significantly sized stone fragments were encountered. We manipulated this sand and stones and as we irrigated the intrarenal collecting system thus dislodging the sand from the mucosa so that it may pass. We carefully rigged them in the ureter as we exited except for some fine sand and no stones remained in the area. Interpretation of retrograde ureteropyelography: Contrast was instilled in retrograde fashion on the left hand side. There no tumors. There was no evidence of extravasation. The calices were mildly blunted and there was fullness of the collecting system as one would expect with a chronic stent. Unobstructed drainage was observed fluoroscopically. The patient's bladder was then drained. Cystoscope was withdrawn. Pelvic examination under anesthesia revealed grade 3 cystocele and grade 2 rectocele. There was atrophic (senile) vaginitis. Patient was then uneventfully reversed from anesthesia and taken to recovery room in stable condition. There were no complications during the procedure. She tolerated the procedure well. Explicit postoperative instructions were given and will follow the patient up in the office. Job#: [id number] cc:ALETHEA QUINN MD
== END | disposition home or self-care (01) ==
LOC: OR 06:01
PROVIDERS: ATTEND Urology
DX: N20.0 Calculus of kidney (principal); N20.1 Calculus of ureter; Z46.6 Encounter for fitting and adjustment of urinary device; N39.41 Urge incontinence; N81.89 Other female genital prolapse; N36.41 Hypermobility of urethra; N81.6 Rectocele; N95.2 Postmenopausal atrophic vaginitis; I25.810 Atherosclerosis of coronary artery bypass graft(s) without angina pectoris; I10 Essential (primary) hypertension; I25.2 Old myocardial infarction; E78.5 Hyperlipidemia, unspecified; E11.9 Type 2 diabetes mellitus without complications; E66.01 Morbid (severe) obesity due to excess calories; Z88.0 Allergy status to penicillin; Z01.810 Encounter for preprocedural cardiovascular examination; Z01.812 Encounter for preprocedural laboratory examination; Z01.818 Encounter for other preprocedural examination; Z79.82 Long term (current) use of aspirin; Z79.84 Long term (current) use of oral hypoglycemic drugs; Z68.32 Body mass index [BMI] 32.0-32.9, adult; Z95.1 Presence of aortocoronary bypass graft
CPT/HCPCS: 36415 ×2; 52353; 71046; 74420; 80048; 82948; 84550; 85025; 88300; 93005; J1100; J1956; J2001; J2250; J2405; J2765; Q9967; 74018